=== PATIENT | female | born 1965 | race Caucasian/White ===

== ENCOUNTER → 2016-04-18 | Day surgery (SDC) | payer OTHER ==
--- NOTE | 2016-04-17 08:30 | History and Physical: Surg Cnt ---
History & Physical Date Apr 17, 2016. 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 Additional History Hepatic Disease: No Endocrine Disorder: No Kidney Disease: No Hypertension: No Heart Disease: No Bleeding Tendencies: No Infectious Diseases: No Physical Examination Skin: warm/dry, no rash Eyes: normal inspection, EOMI, sclerae normal ENT: normal ENT inspection, pharynx normal Head: normocephalic, atraumatic Neck: supple, no adenopathy, trachea midline Respiratory/Chest: lungs clear, normal breath sounds, no respiratory distress Cardiovascular: regular rate, rhythm, no edema, no murmur Abdomen / GI: normal bowel sounds, non tender Back: normal inspection Extremities: normal inspection, normal range of motion Neurologic/Psych: no motor/sensory deficits, alert, normal reflexes, oriented x 3 Diagnosis 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
[2016-04-17 12:43] VITALS: Ht 174 cm; Wt 75.0 kg
[~2016-04-18] VITALS: Ht 174 cm; Wt 75.0 kg
[~2016-04-18] MED LIST: ATROPINE SULFATE 0.1 MG/ML 5ML SYR IV PRN; BACITRACIN OINT 15 GM TUBE ONE; CEFAZOLIN 1000MG/55 ML D5W IV SCH; DEXAMETHASONE SOD INJ 4 MG/ML VIAL ONE; EpHEDrine SULFATE INJ 50 MG/ML AMP IV PRN; EpINEphrine INJ 1MG/ML AMP 1 MG/ML AMP ONE; FENTANYL CITRATE INJ 50 MCG/1 ML 2 ML VIAL ONE; GELATIN SPONGE 12-7MM ONE; LACTATED RINGER'S 1000ML 1,000 ML IV SCH; LIDO 2%/EPINEPHRINE 1:100000 20 ML VIAL INFIL ONE; LIDOCAINE 4% MPF SOAK 5 ML = 1 DOSE TOP ONE; LIDOCAINE HCL 2% 2 ML VIAL (20MG/ML) ONE; LIDOCAINE HCL 4% TOP 50 ML VIAL EXT ONE; MIDAZOLAM HCL 1 MG/ML 2ML VIAL ONE; ONDANSETRON INJ 2 MG/ML 2 ML VIAL IV PRN; ONDANSETRON INJ 2 MG/ML 2 ML VIAL ONE; OXYC-57 PO; OXYCODONE/ACETAMINOPHEN 5-325 TAB PO PRN; PATIENT'S ALLERGY INFO NEEDS ENTERED SCH; PATIENT'S HEIGHT AND/OR WEIGHT NEEDED SCH; PRLSR20 PO; PROPOFOL IV EMULSION 10 MG/ML 20 ML VIAL IV ONE; SODIUM CHLORIDE 0.9% 1000ML 1,000 ML IV SCH; SUCCINYLCHOLINE CHLORIDE 20 MG/ML 10 ML VIAL IV ONE
--- NOTE | 2016-04-18 07:00 | History & Physical Bridge Note ---
H&P Re-Evaluation Bridge Note: I have examined the patient, reviewed the History & Physical and in the interval since the performance of the History & Physical I have noted the following changes of clinical significance: No changes noted
--- NOTE | 2016-04-18 08:14 | Discharge Instructions-SurgCtr ---
Discharge Instructions Visit Reason for Visit: Septal Deviation, Right Vocal Cord Polyp Discharge Discharge Diagnosis / Problem: same Discharge Goals Goal(s): Improve function, Diagnostic testing Activity Recommendations Activity Limitations: resume your previous activity Anesthesia . Post Anesthesia Instructions: If you have had General Anesthesia or IV Sedation: * Do not drive today. * Resume driving when surgeon permits. * Do not make important decisions or sign legal documents today. * Call surgeon for: 1. Temperature elevations greater than 101 degrees F. 2. Uncontrollable pain. 3. Excessive bleeding. 4. Persistent nausea and vomiting. 5. Medication intolerance (nausea, vomiting or rash). * For nausea and vomiting use only clear liquids such as: tea, soda, bouillon until nausea subsides, then gradually increase diet as tolerated. * If you have any concerns or questions, call your surgeon's office. If physician is unavailable and it is an emergency, call 911 or go to the nearest emergency room. . Instructions / Follow-Up Instructions / Follow-Up ACTIVITY RECOMMENDATIONS: * Being up and around is good, but no strenuous activity, heavy lifting or physical exertion for one week. * Keep your head elevated 30 degrees when lying down or sleeping. * Do not blow your nose for 48 hours, sniff back instead. * Avoid hot showers. OVER THE COUNTER MEDICATIONS: * You may use Tylenol * Avoid aspirin or aspirin containing products, e.g. as they may increase bleeding. SPECIAL CARE INSTRUCTIONS: * Expect to have bloody drainage from your nose and/or down your throat for one to three days. Change drip pad as needed. * Begin irrigating your nose with saline solution today, at least six to ten times per day and sniff back to help remove old clots or crust. * You may experience nasal and facial congestion, pain and pressure, this is normal. * Please call with any significant and/or progressive pain, redness, swelling around the eyes, visual changes, fever of 101.5 degrees F, active bleeding or any problems or concerns. * If active bleeding occurs, spray the nose three times at one minute intervals with Afrin spray and call or cell phone: . If unable to reach the doctor, go to the nearest Emergency Department. Special Diet: * Avoid extremely hot fluids. FOLLOW UP VISIT: Follow-up Visit with Dr. Cj If not already scheduled, please call to schedule. Diet Recommendations Home Diet: no limitations Pending Studies Studies pending at discharge: no Medical Emergencies . Who to Call and When: Medical Emergencies: If at any time you feel your situation is an emergency, please call 911 immediately. . Non-Emergent Contact Non-Emergency issues call your: Primary Care Provider . . "Provider Documentation" section prepared by Brea Corona. [place] Drug Monitoring Program Search Results: no issues identified
[2016-04-18] MEDS: FENTANYL CITRATE INJ 50 MCG/1 ML 2 ML VIAL IV PRN ×2 (09:21→09:31)
--- NOTE | 2016-04-18 09:37 | OPERATIVE REPORT ---
DATE OF OPERATION: 04/18/2016 PREOPERATIVE DIAGNOSIS: Septal deviation and right vocal cord polyp. POSTOPERATIVE DIAGNOSIS: Same. PROCEDURE: Septoplasty and direct laryngoscopy with excision of right vocal cord polyp. SURGEON: Dr. Corona. ANESTHESIA: General endotracheal. COMPLICATIONS: None. BLOOD LOSS: 30 mL. HISTORY OF PRESENT ILLNESS: A 50-year-old lady with chronic nasal obstruction, septal deviation to the left with a posterior spur to the right. She also has right greater than left vocal cord polyps. PROCEDURE: The patient brought to the operating room and placed in a supine position. General endotracheal anesthesia was induced, prepped, draped in the usual sterile manner. Direct laryngoscopy was performed using the Dedo laryngoscope. Suspension and microlaryngoscopy was performed with the 400 lens on the microscope. The right vocal cord polyp was at the anterior 1/3rd. This was grasped with upbiting cup forceps and excised using the straight and upbiting scissors and sent to pathology. The left vocal cord polyp was smaller and was left alone. The laryngoscope was withdrawn. The endoscope was used. The nose was decongested using topical cottonoids with a solution of 4 mL of 4% Xylocaine with 1 mL of epinephrine. Injection of 2% Xylocaine with 1:100,000 strength epinephrine was also used. A 15 blade was used to make a left [place] incision. Mucoperichondrium was elevated off the left side of septum. Septal cartilage was inferiorly from the vomer maxillary crest and posteriorly from the perpendicular plate of the ethmoid. A small strip of cartilage projecting to the right inferiorly was removed using the Myrna dissector and Radha forceps. Posteriorly, bilateral posterior tunnels were elevated, isolating the spur projecting to the right and the deviation toward the left. This was removed using the Saulo-Anyi rongeurs and the Radha forceps via the bilateral posterior tunnels. The mucoperichondrium was packed back in position with a piece of Gelfoam using 3/4 of it on the left side and 1/4 of it on the right side, returning the septum to the midline. The patient tolerated the procedure well and was taken to recovery area in satisfactory condition. I attest to the content of the Intraoperative Record and any orders documented therein. Any exceptio ns are noted below.
[2016-04-18 10:13] VITALS: TEMP 37.1
--- NOTE | 2016-04-18 10:16 | Anesthesia Progress Nt - [facility] ---
Anesthesia Post Op Note Date & Time Apr 18, 2016 at 10:16 Vital Signs Pain Intensity: 0 Vital Signs Past 12 Hours Date Time Temp Pulse Resp B/P Pulse Ox O2 Delivery O2 Flow Rate FiO2 04/18/16 09:50 93 18 04/18/16 09:50 89 18 94 04/18/16 09:49 37.2 84 16 149/87 94 Room Air 04/18/16 09:48 149/87 04/18/16 09:45 81 23 04/18/16 09:45 81 23 100 04/18/16 09:44 147/73 04/18/16 09:40 86 17 04/18/16 09:40 87 17 94 04/18/16 09:38 139/99 04/18/16 09:35 91 16 93 04/18/16 09:35 90 16 04/18/16 09:34 139/94 04/18/16 09:30 86 16 04/18/16 09:30 86 16 100 04/18/16 09:28 142/86 04/18/16 09:25 84 15 04/18/16 09:25 84 15 100 04/18/16 09:23 151/99 04/18/16 09:20 93 16 04/18/16 09:20 94 16 100 04/18/16 09:19 90 16 100 04/18/16 09:19 90 16 04/18/16 09:18 146/92 04/18/16 09:14 36.6 98 12 151/100 98 Humidified Oxygen Diffusion Mask 04/18/16 09:14 99 17 130/96 99 04/18/16 09:14 98 17 04/18/16 06:45 36.7 79 20 123/88 97 Room Air Notes Mental Status: alert / awake / arousable, participated in evaluation Pt Amnestic to Procedure: Yes Nausea / Vomiting: adequately controlled Pain: adequately controlled Airway Patency, RR, SpO2: stable & adequate BP & HR: stable & adequate Hydration State: stable & adequate Anesthetic Complications: no major complications apparent
[2016-04-18 10:37] VITALS: BP 133/84; PULSE 89; O2SAT 95
== END | disposition home or self-care (01) ==
LOC: X.SURG 06:28
PROVIDERS: ATTEND Otolaryngology
DX: J34.2 Deviated nasal septum (principal); J38.1 Polyp of vocal cord and larynx; R49.0 Dysphonia